=== PATIENT | female | born 1970 | race Caucasian/White ===

== ENCOUNTER → 2017-03-24 | Outpatient (REF) | payer OTHER ==
[~2017-03-24] MED LIST: /FENT25PA TD; ALIEVE; BENADRYL PO; CLARITAN PO; MULTCAP PO; PRIL20CA OR; TYLENOL PO; aleve; percocet
[2017-03-24 22:47] LABS: MICROSCOPIC INDICATED? MAN YES (NO)
[2017-03-24 22:53] LABS: SQUAMOUS EPITHELIAL CELL URINE MOD AMOUNT /hpf (SMALL AMT); TRANSITIONAL EPI CELLS, URINE SMALL AMOUNT /hpf; WBC, URINE TNTC /hpf (0-3)
[2017-03-24 22:54] LABS: BACTERIA, URINE SMALL AMOUNT
[2017-03-24 22:55] LABS: HYALINE CAST, URINE NONE SEEN /lpf (0-1)
[2017-03-24 22:56] LABS: MICROSCOPIC EXAM PERFORMED
== END ==
LOC: M LAB REF 10:29
PROVIDERS: ATTEND Physician Assistant Medical
DX: R30.0 Dysuria (principal)

== ENCOUNTER → 2017-08-25 | Outpatient (REF) | payer OTHER ==
[2017-08-25 21:40] LABS: LUTEINIZING HORMONE 28.7 mIU/mL
[2017-08-25 21:41] LABS: FOLLICLE STIMULATING HORMONE 81.2 mIU/mL
== END ==
LOC: M LAB REF 17:48
DX: N91.2 Amenorrhea, unspecified (principal)

== ENCOUNTER 2018-01-28 10:39 | Emergency (ER) | payer OTHER ==
[2018-01-28] MEDS: ONDANSETRON 4 MG ORAL DISINTEGRATING TAB (Q0162 PER 1MG) PO (12:49)
[2018-01-28] MEDS: ACETAMINOPHEN 325 MG TAB PO (12:49)
== END 2018-01-28 13:40 | disposition home or self-care (01) ==
LOC: M ED 10:39
DX: S09.90XA Unspecified injury of head, initial encounter (principal); S06.0X0A Concussion without loss of consciousness, initial encounter; W22.8XXA Striking against or struck by other objects, initial encounter; Y92.9 Unspecified place or not applicable; Y93.01 Activity, walking, marching and hiking; Y99.0 Civilian activity done for income or pay; G43.909 Migraine, unspecified, not intractable, without status migrainosus; J30.2 Other seasonal allergic rhinitis; Z79.899 Other long term (current) drug therapy
CPT/HCPCS: Q0162

== ENCOUNTER 2018-03-30 06:34 | Day surgery (SDC) | payer OTHER ==
[~2018-03-30 06:34] MED LIST changes: -/FENT25PA TD; -ALIEVE; -BENADRYL PO; -CLARITAN PO; +KETOROLAC 60 MG/2 ML VIAL (J1885) As Ordered; +LIDOCAINE 2% INJ 100 MG/5 ML SDV (FOR ANES.) As Ordered; +MIDAZOLAM INJ 2 MG/2 ML VIAL (J2250) As Ordered; -MULTCAP PO; +ONDANSETRON 4MG/2ML VIAL (J2405) As Ordered; -PRIL20CA OR; +PROPOFOL 200 MG/20 ML VIAL As Ordered; -TYLENOL PO; -aleve; +dexameTHASONE 4 MG/ML 1ML VIAL (J1100) As Ordered; +fentaNYL 100 MCG/2 ML INJECTION (J3010) As Ordered; -percocet
[2018-03-30] MEDS: LR 1,000 ML IV (07:19)
[2018-03-30] MEDS ORDERED: CHLOROPROCAINE 2 % INJ PRES.FREE 20 ML VIAL (J2400) As Ordered (08:09)
[2018-03-30] MEDS ORDERED: MIDAZOLAM INJ 2 MG/2 ML VIAL (J2250) As Ordered (08:42)
[2018-03-30] MEDS ORDERED: ONDANSETRON 4MG/2ML VIAL (J2405) IV (09:30)
[2018-03-30] MEDS ORDERED: fentaNYL 100 MCG/2 ML INJECTION (J3010) IV (09:30)
[2018-03-30] MEDS ORDERED: LR 1,000 ML IV ×2 (09:30)
[2018-03-30] MEDS ORDERED: ACETAMINOPHEN 500 MG TAB As Ordered (10:21)
[2018-03-30] MEDS: ACETAMINOPHEN 500 MG TAB PO (10:24)
[2018-03-30] MEDS ORDERED: IBUPROFEN 600 MG TAB PO (12:00)
== END 2018-03-30 11:04 | disposition home or self-care (01) ==
LOC: M SDC 06:34
DX: N95.0 Postmenopausal bleeding (principal); N85.00 Endometrial hyperplasia, unspecified; Z98.84 Bariatric surgery status
CPT/HCPCS: 58558

== ENCOUNTER → 2021-01-23 | Outpatient (REF) | payer OTHER ==
[~2021-01-23] MED LIST changes: +ALIEVE; +ALLE60TA69 PO; +BENADRYL PO; +CLARITAN PO; +FENT1DIS14 TD; +IBUP1TAB7 PO; -KETOROLAC 60 MG/2 ML VIAL (J1885) As Ordered; -LIDOCAINE 2% INJ 100 MG/5 ML SDV (FOR ANES.) As Ordered; +MAGN1TAB26 PO; +MAXA10TA14 PO; -MIDAZOLAM INJ 2 MG/2 ML VIAL (J2250) As Ordered; +MULTCAP PO; -ONDANSETRON 4MG/2ML VIAL (J2405) As Ordered; +PRIL20CA OR; -PROPOFOL 200 MG/20 ML VIAL As Ordered; +ROPI2TAB3 PO; +TOPA100T12 PO; +TRAZ-257 PO; +TYLENOL PO; +ZOFR4TAB14 PO; +aleve; -dexameTHASONE 4 MG/ML 1ML VIAL (J1100) As Ordered; -fentaNYL 100 MCG/2 ML INJECTION (J3010) As Ordered; +percocet
[2021-01-23 21:05] LABS: APPEARANCE, URINE CLOUDY (CLEAR); BACTERIA, URINE AUTO NEGATIVE (NEGATIVE); BILIRUBIN, URINE AUTO NEGATIVE (NEGATIVE); BLOOD, URINE BLOOD 1+ (NEGATIVE); CALCIUM OXALATE CRYSTALS SMALL; COLOR, URINE YELLOW (YELLOW); GLUCOSE, URINE (UA) AUTO NEGATIVE (NEGATIVE); KETONE, URINE AUTO TRACE mg/dL (NEGATIVE); LEUKOCYTE ESTERASE, URINE AUTO 3+ (NEGATIVE); MUCUS, URINE MODERATE (NEGATIVE); NITRITE, URINE AUTO NEGATIVE (NEGATIVE); PROTEIN, URINE AUTO 1+ mg/dL (NEGATIVE); RBC, URINE AUTO 6 /HPF (0-3); SPECIFIC GRAVITY URINE AUTO 1.027 (1.002-1.035); SQUAMOUS EPITHELIAL CELL UR AU 2 /HPF (0-6); WBC, URINE AUTO 51 /HPF (0-3)
== END ==
LOC: M LAB REF 19:55
PROVIDERS: ATTEND Physician Assistant
DX: R30.0 Dysuria (principal)

== ENCOUNTER 2021-02-03 23:19 | Emergency (ER) | payer OTHER ==
[~2021-02-03] VITALS: Ht 170.2 cm; Wt 97.7 kg
[2021-02-04] MEDS ORDERED: NS 1,000 ML IV ONE (00:05)
[2021-02-04] MEDS ORDERED: LORazepam 2 MG/ML VIAL IV STA (00:08)
[2021-02-04] MEDS ORDERED: LORazepam 2 MG/ML VIAL As Ordered ONE (00:10)
[2021-02-04 00:17] LABS: BASO # 0.1 10^3/uL (0.0-0.2); BASO % 0.5 % (0.0-1.0); EOS # 0.1 10^3/uL (0.0-0.5); EOS % 1.2 % (0.0-3.0); HEMATOCRIT 41.5 % (36.0-47.0); HEMOGLOBIN 13.9 g/dl (12.0-15.5); LYMPH # 1.4 10^3/uL (1.5-5.0); LYMPH % 12.7 % (24.0-44.0); MEAN CORPUSCULAR HEMOGLOBIN 31.4 pg (27.0-33.0); MEAN CORPUSCULAR HGB CONC 33.5 g/dl (32.0-36.5); MEAN CORPUSCULAR VOLUME 93.9 fl (80.0-96.0); MONO # 0.6 10^3/uL (0.0-0.8); MONO % 5.3 % (2.0-8.0); NEUTROPHILS # 8.7 10^3/uL (1.5-8.5); NEUTROPHILS % 79.5 % (36.0-66.0); PLATELET COUNT, AUTOMATED 303 10^3/uL (150-450); RED BLOOD COUNT 4.42 10^6/uL (4.00-5.40); WHITE BLOOD COUNT 10.9 10^3/uL (4.0-10.0)
[2021-02-04 00:36] LABS: BLOOD UREA NITROGEN 27 MG/DL (7-18); CALCIUM LEVEL 9.1 MG/DL (8.5-10.1); CARBON DIOXIDE LEVEL 22 MEQ/L (21-32); CHLORIDE LEVEL 110 MEQ/L (98-107); CREATININE FOR GFR 1.01 MG/DL (0.55-1.30); GLOMERULAR FILTRATION RATE > 60.0 (>51); GLUCOSE, FASTING 157 MG/DL (70-100); POTASSIUM SERUM 3.4 MEQ/L (3.5-5.1); SODIUM LEVEL 141 MEQ/L (136-145)
[2021-02-04 02:00] VITALS: BP 150/92
[2021-02-04 02:09] LABS: AMPHETAMINES LEVEL URINE NEGATIVE (NEGATIVE); BARBITURATES URINE NEGATIVE (NEGATIVE); BENZODIAZEPINES URINE NEGATIVE (NEGATIVE); CANNABINOIDS URINE POSITIVE (NEGATIVE); COCAINE METABOLITE URINE NEGATIVE (NEGATIVE); METHADONE URINE NEGATIVE (NEGATIVE); OPIATES URINE NEGATIVE (NEGATIVE); PHENCYCLIDINE URINE NEGATIVE (NEGATIVE)
[2021-02-04] MEDS ORDERED: ROPI1TAB3 PO (23:16)
[2021-02-04] MEDS ORDERED: ROPI1TAB86 PO (23:16)
[2021-02-04] MEDS ORDERED: MULT-90 PO (23:17)
== END 2021-02-04 02:45 | disposition home or self-care (01) ==
LOC: M ED 23:19
DX: F12.229 Cannabis dependence with intoxication, unspecified (principal); G43.909 Migraine, unspecified, not intractable, without status migrainosus; Z79.899 Other long term (current) drug therapy
CPT/HCPCS: 80048; 80307; 85025; 96374; 99284; J2060

== ENCOUNTER 2021-02-04 20:01 | Inpatient (IN) | payer OTHER ==
[~2021-02-04] VITALS: Ht 170.2 cm; Wt 102.2 kg
[2021-02-04 21:37] LABS: BASO % 0.7 % (0.0-1.0); EOS # 0.2 10^3/uL (0.0-0.5); EOS % 3.3 % (0.0-3.0); HEMATOCRIT 40.8 % (36.0-47.0); HEMOGLOBIN 13.3 g/dl (12.0-15.5); LYMPH # 1.6 10^3/uL (1.5-5.0); LYMPH % 28.6 % (24.0-44.0); MEAN CORPUSCULAR HEMOGLOBIN 30.9 pg (27.0-33.0); MEAN CORPUSCULAR HGB CONC 32.6 g/dl (32.0-36.5); MEAN CORPUSCULAR VOLUME 94.9 fl (80.0-96.0); MONO # 0.3 10^3/uL (0.0-0.8); MONO % 5.7 % (2.0-8.0); NEUTROPHILS # 3.4 10^3/uL (1.5-8.5); NEUTROPHILS % 61.3 % (36.0-66.0); PLATELET COUNT, AUTOMATED 267 10^3/uL (150-450); WHITE BLOOD COUNT 5.5 10^3/uL (4.0-10.0)
[2021-02-04 21:59] LABS: AMPHETAMINES LEVEL URINE NEGATIVE (NEGATIVE); BARBITURATES URINE NEGATIVE (NEGATIVE); BENZODIAZEPINES URINE NEGATIVE (NEGATIVE); CANNABINOIDS URINE POSITIVE (NEGATIVE); COCAINE METABOLITE URINE NEGATIVE (NEGATIVE); METHADONE URINE NEGATIVE (NEGATIVE); OPIATES URINE NEGATIVE (NEGATIVE); PHENCYCLIDINE URINE NEGATIVE (NEGATIVE)
[2021-02-04 22:10] LABS: ACETAMINOPHEN LEVEL < 2.0 UG/ML (10.0-30.0); ALBUMIN 3.7 GM/DL (3.2-5.2); ALT/SGPT 20 U/L (12-78); BILIRUBIN,DIRECT < 0.1 MG/DL (0.0-0.2); BILIRUBIN,TOTAL 0.3 MG/DL (0.2-1.0); BLOOD UREA NITROGEN 14 MG/DL (7-18); CALCIUM LEVEL 8.4 MG/DL (8.5-10.1); CARBON DIOXIDE LEVEL 21 MEQ/L (21-32); CHLORIDE LEVEL 117 MEQ/L (98-107); CK-MB VALUE MASS 1.2 NG/ML (<3.6); CPK CREATINE PHOSPHOKINASE 110 U/L (26-192); CREATININE FOR GFR 0.72 MG/DL (0.55-1.30); ETHYL ALCOHOL (ETHANOL) < 0.003 % (0.000-0.010); GLOMERULAR FILTRATION RATE > 60.0 (>51); GLUCOSE, FASTING 109 MG/DL (70-100); MB/CK RELATIVE INDEX 1.09 (< OR =4); POTASSIUM SERUM 3.6 MEQ/L (3.5-5.1); SALICYLATE LEVEL < 1.7 MG/DL (5.0-30.0); SODIUM LEVEL 144 MEQ/L (136-145); TOTAL PROTEIN 6.5 GM/DL (6.4-8.2); TROPONIN I < 0.02 NG/ML (< 0.10)
--- NOTE | 2021-02-04 22:19 | REPVR ---
PROCEDURE INFORMATION: Exam: CT Head Without Contrast Exam date and time: 02/04/2021 8:57 PM Age: 50 years old Clinical indication: Altered mental status/memory loss TECHNIQUE: Imaging protocol: Computed tomography of the head without contrast. Axial and coronal reformatted images were created and reviewed. Radiation optimization: All CT scans at this facility use at least one of these dose optimization techniques: automated exposure control; mA and/or kV adjustment per patient size (includes targeted exams where dose is matched to clinical indication); or iterative reconstruction. COMPARISON: CT Head without contrast 01/28/2018 12:36 PM FINDINGS: Brain: No CT evidence of acute intracranial hemorrhage or acute territorial infarction. No significant mass effect or midline shift. Basal cisterns patent. Cerebral ventricles: Normal in size and configuration. Paranasal sinuses: Mild right greater than left sphenoid sinus mucosal thickening. Small left maxillary sinus polyp versus mucous retention cyst. Mastoid air cells: Grossly unremarkable. Bones/joints: No acute osseous abnormality. Soft tissues: Grossly unremarkable. IMPRESSION: 1. No CT evidence of acute intracranial pathology. 2. Additional findings, as above. Electronically signed by: Manuel Chen On 02/04/2021 22:18:58 PM
--- NOTE | 2021-02-04 22:24 | REPVR ---
PROCEDURE INFORMATION: Exam: XR Chest Exam date and time: 02/04/2021 8:56 PM Age: 50 years old Clinical indication: Other: AMS; Additional info: Altered mental status TECHNIQUE: Imaging protocol: XR of the chest. Views: 2 views. COMPARISON: No relevant prior studies available. FINDINGS: Lungs: Unremarkable. No consolidation. Pleural spaces: Unremarkable. No pleural effusion. No pneumothorax. Heart/Mediastinum: Rounded right paratracheal opacity on the AP image, of uncertain clinical significance. Bones/joints: No acute osseous abnormality. Mild degenerative changes of the spine. IMPRESSION: 1. Rounded right paratracheal opacity on the AP image, of uncertain clinical significance. If clinically indicated CT scan may be obtained. 2. Additional findings, as above. Electronically signed by: Manuel Chen On 02/04/2021 22:23:53 PM
[2021-02-04] MEDS ORDERED: LABETALOL 100MG TAB PO ONE (23:10)
[2021-02-04] MEDS ORDERED: ATORVASTATIN 20 MG TAB PO ONE (23:10)
[2021-02-04] MEDS ORDERED: ASPIRIN 81 MG CHEW TABLET PO ONE (23:10)
[2021-02-04] MEDS ORDERED: ROPI1TAB86 PO (23:16)
[2021-02-04] MEDS ORDERED: ROPI1TAB3 PO (23:16)
[2021-02-04] MEDS ORDERED: MULT-90 PO (23:17)
[2021-02-04] MEDS ORDERED: MAALOX 30 ML SUSP *UDC PO PRN (23:20)
[2021-02-04] MEDS ORDERED: ACETAMINOPHEN TAB 650MG DOSE (2X325MG) PO PRN (23:20)
[2021-02-04] MEDS ORDERED: MOM 30ML SUSPENSION UDC PO PRN (23:20)
--- NOTE | 2021-02-04 23:27 | HPEPDOC ---
[facility] Medical History & Physical Date of Admission Feb 04, 2021 Date of Service: Feb 04, 2021 Primary Care Physician: Sabine Copeland Attending Physician: MAYRA KAT MD History and Physical TIME OF SERVICE: 11:45pm CHIEF COMPLAINT: paresthesia HISTORY OF PRESENT ILLNESS: was in the ER yesterday w/o anxiety, paranoia and left sided paresthesia after inhaling and orally ingested various THC products; she was diagnosed with a THC overdose and sent home. Her symptoms improved but today she returned because she has been having left facial, left perioral, LUE and LLE paresthesia. The left sided paresthesia begun at about 5PM, is relapsing and remitting in nature & lasts for 30min. Her NIH stroke score was 0; discussed the case with and the consensus was that the pt might have HTN emergency. recommended completing the stroke workup; the patient has received ASA, labetalol and a statin. 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 FAMILY HISTORY: ALLERGIES: Please see below. HOME MEDICATIONS: Please see below. PHYSICAL EXAMINATION: Vital Signs Date Time Temp Pulse Resp B/P (MAP) Pulse Ox O2 Delivery O2 Flow Rate FiO2 02/04/21 20:01 98.7 97 20 169/80 (109) 96 Room Air GENERAL APPEARANCE: well-nourished and developed / NAD HEENT: EOMI / MMM&P / no scleral icterus CARDIOVASCULAR: RRR/NMRG / no LE edema LUNGS: CTAB on RA ABDOMEN: contour flat MUSCULOSKELETAL: NCAT / AZEEM x 4 INTEGUMENT: not flushed or diaphoretic NEUROLOGICAL: CN 2-12 intact / speech not dysarthric / strength 5/5 PSYCHIATRIC: A&O x3 /able to understand and follow all commands LABORATORY DATA: 02/04/21 21:08 Anion Gap 6L, Glomerular Filtration Rate > 60.0, Calcium Level 8.4L, Total Bilirubin 0.3, Direct Bilirubin < 0.1, Aspartate Amino Transf (AST/SGOT) 18, Alanine Aminotransferase (ALT/SGPT) 20, Alkaline Phosphatase 99, Total Creatine Kinase 110, Creatine Kinase MB 1.2, Creatine Kinase MB Relative Index 1.09, Troponin I < 0.02, Total Protein 6.5, Albumin 3.7, Albumin/Globulin Ratio 1.3, Thyroid Stimulating Hormone (TSH) 2.660, Salicylates Level < 1.7L, Acetaminophen Level < 2.0L, Ethyl Alcohol Level < 0.003 Ammonia 29, Urine Opiates Screen NEGATIVE, Urine Methadone Screen NEGATIVE, Urine Barbiturates Screen NEGATIVE, Urine Phencyclidine Screen NEGATIVE, Urine Amphetamines Screen NEGATIVE, Urine Benzodiazepines Screen NEGATIVE, Urine Cocaine Metabolite Screen NEGATIVE, Urine Cannabinoids Screen POSITIVEH IMAGING: Chest xray IMPRESSION: 1. Rounded right paratracheal opacity on the AP image, of uncertain clinical significance. If clinically indicated CT scan may be obtained. 2. Additional findings, as above. MICROBIOLOGY: respiratory panel neg ASSESSMENT: is a 50 yr old w Migraines, remote hx of HTN resolved after her gastric bypass & benign pericardial cyst who is admitted for HTN Urgency vs adverse reaction to THC. PLAN: 1 Hypertensive Crisis Likely HTN Urgency She had an SBP >180 with symptoms (paresthesias) but we dont have definitive evidence of end-organ damage This was likely triggered by use of multiple THC products which she reports that she plans to abstain from in the future. Plan: admit to PCU / will aim to lower BP by 25% w/in the first 2-4 hours with target BP of <160/100 tonight / if her BP doesnt return to her baseline the day time team may consider starting her on an anti-hypertensive / she can f/u with her PCP to discuss the role of lifestyle modifications in controlling her BP (low salt diet, exercise and weight loss) 2 Paresthesia Possibly due to adverse reaction to THC products, accelerated HTN +/- TIA Plan telemetry /fall precautions / c/w ASA & statin pending lipid panel, A1C, CTA head/neck, MRI brain, Echo and hypercoag work-up 3 Migraines Plan: rizatriptan & topiramate 4 RLS Plan: ropinorole 5 Benign pericardial cyst -majority of tissue was resected by several years ago 6 Obesity Complicates care DVT px w (Raymundo Score 1 or 2 points = pharmacological px not indicated) Dispo: home after at least 2 midnights stay Home Medications Scheduled Fexofenadine HCl (Kya Allergy) 60 Mg Tab, 160 PO DAILY Multivitamin (Multivitamin) 1 Each Tablet, 1 EACH PO DAILY Ropinirole HCl (Ropinirole HCl) 1 Mg Tablet, 1 MG PO QPM Ropinirole HCl (Ropinirole HCl) 1 Mg Tablet, 2 MG PO QHS Topiramate (Topamax) 100 Mg Tab, 100 MG PO BID Scheduled PRN Rizatriptan Benzoate (Maxalt) 10 Mg Tab, 10 MG PO for MIGRAINE Allergies Coded Allergies: SEASONAL ALLERGIES (Verified Allergy, Unknown, 03/30/18) A-FIB/CHADSVASC A-FIB History Current/History of A-Fib/PAF?: No Current PO Anticoag Therapy: No MAYRA KAT MD Feb 04, 2021 23:27
[2021-02-04] MEDS ORDERED: ISOVUE-370 76% 100ML VIAL As Ordered ONE (23:32)
[2021-02-04] MEDS ORDERED: RIZATRIPTAN BENZOATE 10 MG TAB PO PRN (23:35)
[2021-02-05] VITALS (7 sets, daily range): BP systolic 110–160; BP diastolic 56–92
[2021-02-05] LABS: C REACTIVE PROTEIN QUANTITATIV < 0.30 MG/DL (0.00-0.30); CHOLESTEROL LEVEL 183 MG/DL (<200); CHOLESTEROL RISK RATIO 3.327 (<5); HDL CHOLESTEROL 55 MG/DL (>40); LDL CHOLESTEROL 99 MG/DL (<100); NON-HDL-C 128 MG/DL; RHEUMATOID FACTOR QUANT < 10.0 IU/ML (<15.0); TRIGLYCERIDES LEVEL 147 MG/DL (<150)
--- NOTE | 2021-02-05 00:14 | REPVR ---
PROCEDURE INFORMATION: Exam: CT Angiography Head With Contrast, Arteriography Exam date and time: 02/04/2021 11:40 PM Age: 50 years old Clinical indication: Other: Relapsing and remitting hand paresthesias / accelerated HTN TECHNIQUE: Imaging protocol: Computed tomography angiography of the head with contrast. Exam focused on the arteries. Axial, coronal and sagittal reformatted images were created and reviewed. 3D rendering (Not supervised by radiologist): MIP and/or 3D reconstructed images were created by the technologist. Radiation optimization: All CT scans at this facility use at least one of these dose optimization techniques: automated exposure control; mA and/or kV adjustment per patient size (includes targeted exams where dose is matched to clinical indication); or iterative reconstruction. Contrast material: ISOVUE 370; Contrast volume: 75 ml; Contrast route: INTRAVENOUS (IV); COMPARISON: CT Head without contrast 02/04/2021 8:48 PM FINDINGS: ANTERIOR CIRCULATION: Right internal carotid artery: Unremarkable. Intracranial segment is patent with no significant stenosis. No aneurysm. Right middle cerebral artery: Unremarkable. No occlusion or significant stenosis. No aneurysm. Right anterior cerebral artery: Unremarkable. No occlusion or significant stenosis. No aneurysm. Left internal carotid artery: Unremarkable. Intracranial segment is patent with no significant stenosis. No aneurysm. Left middle cerebral artery: Unremarkable. No occlusion or significant stenosis. No aneurysm. Left anterior cerebral artery: Unremarkable. No occlusion or significant stenosis. No aneurysm. POSTERIOR CIRCULATION: Right vertebral artery: Unremarkable. No occlusion or significant stenosis. No aneurysm. Left vertebral artery: Unremarkable. No occlusion or significant stenosis. No aneurysm. Basilar artery: Unremarkable. No occlusion or significant stenosis. No aneurysm. Right posterior cerebral artery: Unremarkable. No occlusion or significant stenosis. No aneurysm. Left posterior cerebral artery: Unremarkable. No occlusion or significant stenosis. No aneurysm. Brain: No definite mass, mass effect, or midline shift. Cerebral ventricles: No ventriculomegaly. Bones/joints: Unremarkable. No acute fracture. Soft tissues: Unremarkable. IMPRESSION: No large vessel stenosis or occlusion. Electronically signed by: Manuel Chen On 02/05/2021 00:14:49 AM
[2021-02-05] MEDS ORDERED: RAMELTEON 8 MG TAB (ROZEREM) PO PRN (00:15)
--- NOTE | 2021-02-05 00:19 | REPVR ---
PROCEDURE INFORMATION: Exam: CT Angiography Neck With Contrast Exam date and time: 02/04/2021 11:40 PM Age: 50 years old Clinical indication: Other: Relapsing and remitting hand paresthesias / accelerated HTN TECHNIQUE: Imaging protocol: Computed tomography angiography of the neck with contrast. Axial, coronal and sagittal reformatted images were created and reviewed. 3D rendering (Not supervised by radiologist): MIP and/or 3D reconstructed images were created by the technologist. Radiation optimization: All CT scans at this facility use at least one of these dose optimization techniques: automated exposure control; mA and/or kV adjustment per patient size (includes targeted exams where dose is matched to clinical indication); or iterative reconstruction. Contrast material: ISOVUE 370; Contrast volume: 75 ml; Contrast route: INTRAVENOUS (IV); COMPARISON: CT Head without contrast 02/04/2021 8:48 PM FINDINGS: Right common carotid artery: No stenosis. No dissection or occlusion. Right internal carotid artery: Normal. Extracranial segment patent with no significant stenosis. No dissection or occlusion. Right external carotid artery: No occlusion or stenosis of the origin. Left common carotid artery: No stenosis. No dissection or occlusion. Left internal carotid artery: Normal. Extracranial segment patent with no significant stenosis. No dissection or occlusion. Left external carotid artery: No occlusion or stenosis of the origin. Right vertebral artery: No stenosis. No dissection or occlusion. Left vertebral artery: No stenosis. No dissection or occlusion. Soft tissues: Unremarkable. Bones/joints: No acute osseous abnormality. Osteopenia. Straightening of the normal cervical lordosis. Mild multilevel degenerative changes, characterized by disc space narrowing, osteophytosis and uncovertebral and facet joint hypertrophy. Mild multilevel spinal canal and neural foraminal narrowing. Mediastinum: 5.1 x 4.3 cm lobular right paratracheal mass. IMPRESSION: 1. No acute vascular abnormality. 2. 5.1 x 4.3 cm lobular right paratracheal mass. CT scan of the chest is recommended for further evaluation. REFERENCES: NASCET CRITERIA. The degree of internal carotid artery stenosis is based on NASCET criteria. Normal is no stenosis. Mild is less than 50% stenosis. Moderate is 50-69% stenosis. Severe is 70% to 99% stenosis. Total occlusion is no detectable patent lumen. Electronically signed by: Manuel Chen On 02/05/2021 00:18:30 AM
[2021-02-05 00:23] LABS: ERYTHROCYTE SEDIMENTATION RATE 5 mm/hr (0-30)
[2021-02-05 01:16] LABS: HEMOGLOBIN A1c 4.8 %
[2021-02-05] MEDS: rOPINIRole 1MG TAB PO SCH ×2 (01:41→21:40)
--- NOTE | 2021-02-05 04:12 | REPVR ---
PROCEDURE INFORMATION: Exam: MR Head Without Contrast Exam date and time: 02/05/2021 3:21 AM Age: 50 years old Clinical indication: Other: Relapsing and remitting paresthesias / accelerated HTN TECHNIQUE: Imaging protocol: MR of the head without contrast. COMPARISON: CT Head without contrast 02/04/2021 8:48 PM FINDINGS: Brain: Unremarkable. No acute infarct. No hemorrhage. No significant white matter disease. No edema. No midline shift or mass effect. Cerebral ventricles: Normal. No ventriculomegaly. Bones/joints: Unremarkable. Paranasal sinuses: Normal as visualized. No acute sinusitis. Mastoid air cells: Normal as visualized. No mastoid effusion. Soft tissues: Unremarkable. IMPRESSION: No acute intracranial abnormality. Electronically signed by: Nicola Martinez On 02/05/2021 04:12:17 AM
[2021-02-05 05:53] LABS: HEMATOCRIT 38.1 % (36.0-47.0); HEMOGLOBIN 12.6 g/dl (12.0-15.5); MEAN CORPUSCULAR HEMOGLOBIN 31.3 pg (27.0-33.0); MEAN CORPUSCULAR HGB CONC 33.1 g/dl (32.0-36.5); MEAN CORPUSCULAR VOLUME 94.8 fl (80.0-96.0); PLATELET COUNT, AUTOMATED 234 10^3/uL (150-450); RED BLOOD COUNT 4.02 10^6/uL (4.00-5.40); WHITE BLOOD COUNT 5.1 10^3/uL (4.0-10.0)
[2021-02-05 06:21] LABS: BLOOD UREA NITROGEN 11 MG/DL (7-18); CALCIUM LEVEL 8.6 MG/DL (8.5-10.1); CARBON DIOXIDE LEVEL 23 MEQ/L (21-32); CHLORIDE LEVEL 116 MEQ/L (98-107); CREATININE FOR GFR 0.63 MG/DL (0.55-1.30); GLOMERULAR FILTRATION RATE > 60.0 (>51); GLUCOSE, FASTING 98 MG/DL (70-100); POTASSIUM SERUM 3.5 MEQ/L (3.5-5.1); SODIUM LEVEL 144 MEQ/L (136-145)
--- NOTE | 2021-02-05 07:51 | IPNPDOC ---
Text Note Date of Service The patient was seen on 02/05/21. NOTE Subjective: Patient seen and examined this morning at bedside. Continues to endorse intermittent left facial left upper extremity and left lower extremity paresthesia although better than yesterday. Otherwise feeling well denies any chest pain or shortness of breath. Denies any speech changes. Denies any weakness in upper or lower extremities. No acute overnight events reported to me. Objective: Constitutional: Awake and alert, in no apparent distress ENT: Sclera are clear. Mucosa is moist. Respiratory: Lungs CTA bilaterally. No respiratory distress. Cardiovascular: RRR S1 and S2 are normal, no murmur Gastrointestinal: Abdomen is soft, non distended, non tender, BS present. Musculoskeletal: No edema. RUE 5/5, LUE 5/5, BLE 5/5 Neurologic: No focal neurological deficit. Mental Status: A&O x3, normal affect Skin: No visible rashes Assessment/plan: is a 50 yr old w Migraines, remote hx of HTN resolved after her gastric bypass & benign pericardial cyst who is admitted for HTN Urgency vs adverse reaction to THC. # Hypertensive urgency: Blood pressure better controlled now. Continue home medications. Monitor titrate. Hydralazine IV as needed. # Paresthesia: Dr Kong neurologist thinks could be related to THC products vs in combination with the HTN urgency above. Continue to observe. ASA, statin. Nuro checks. Tele. echo, hypercoag workup started by admitting provider. Imaging reviewed. Continue to monitor paresthesias for now, anticipate them to resolve as THC products are metabolized and BP is better controlled. # R paratrachal mass: Seen on CT neck angio. Ordered CT chest to further evaluate per radiologist recommendations. # Migraine headaches: Continue home medications # RLS: ropinorole # Obesity Complicates care A Yousef Hospitalist VS,Fishbone, I+O VS, Fishbone, I+O Laboratory Tests 02/04/21 21:07 02/04/21 21:08 02/05/21 05:35 Vital Signs Date Time Temp Pulse Resp B/P (MAP) Pulse Ox O2 Delivery O2 Flow Rate FiO2 02/05/21 04:10 97.1 68 16 110/56 (74) 100 Room Air PRESTON RINCON MD Feb 05, 2021 07:51
[2021-02-05] MEDS ORDERED: ENOXAPARIN 40MG/0.4ML SYRINGE (J1650 PER 10MG) SC SCH (09:00)
[2021-02-05] MEDS: ASPIRIN 81MG ENTERIC TABLET PO SCH (09:25)
[2021-02-05] MEDS: TOPIRAMATE (TopAMAX) 100 MG TAB PO SCH ×2 (09:26→21:39)
[2021-02-05] MEDS: ATORVASTATIN 20 MG TAB PO SCH (09:26)
--- NOTE | 2021-02-05 15:19 | ECGEPIP ---
[facility] - ED Test Date: 2021-02-04 Pat Name: YI ESPINOZA Department: Room: [place] [address] Gender: Female Pivot Maker: Sheree MANE : 1970 Requested By: BATOOL Soto Order Number: [id number] Reading MD: Prince Cadena Measurements Intervals [place] Rate: 80 P: 37 WA: 140 QRS: -2 QRSD: 74 T: 32 QT: 380 QTc: 438 Interpretive Statements Normal sinus rhythm Minimal voltage criteria for LVH, may be normal variant Baseline artifact Comparison tracing not on file Nonspecific ST abnormality Electronically Signed on 02-05-2021 15:19:38 EDT by Prince Cadena
[2021-02-05] MEDS ORDERED: rOPINIRole 1MG TAB PO SCH (18:00)
--- NOTE | 2021-02-05 18:14 | REP ---
INDICATION: Evaluate chest nodule seen on CTA. COMPARISON: Comparison CT of the chest is from April 11, 2016. Comparison is made with images from CT angiography of the neck dated February 04, 2021. Comparison is also made with chest CT images from April 02, 2011.. TECHNIQUE: Helical scanning is acquired. 3 mm axial images are generated. Coronal and sagittal MPR and coronal MIP images are generated. FINDINGS: There is a homogeneous low density mass in the right paratracheal and pretracheal mediastinum. There are 2 focal densities consistent with calcification or surgical clips. The appearance and size the lesion is unchanged from both prior studies 2015 and 2020. This is compatible with a mediastinal cyst. No hilar or other mediastinal mass is seen. No pleural or pericardial effusion is noted. There is a right lower lobe pulmonary nodule visible on page 48 of 104 in series 201 of today's study which measures 7 mm in greatest diameter. This is visible on the prior CT study from 2010 and is felt to be unchanged. Is unchanged from 2016 study as well. There is a calcified granuloma adjacent to the pleura in the superior tip of the left lower lobe. No other pulmonary nodule is seen. No mass lesion is observed. No pleural effusion or infiltrate is appreciated. No axillary or other extra thoracic mass or adenopathy is seen. Patient is status post gastric bypass. There is a small low-density left adrenal adenoma which is unchanged from the 2016 study. The visualized upper abdominal structures are otherwise unremarkable. 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 Stable right lower lobe 7 mm pulmonary nodule. Stable left adrenal adenoma. No acute abnormality. <Electronically signed by Bhanu Hernandez > 02/05/21 1005
[2021-02-06 00:05] VITALS: BP 130/78
[2021-02-06 04:00] VITALS: BP 120/67
[2021-02-06 08:00] VITALS: BP 135/81
--- NOTE | 2021-02-06 08:10 | ECHO ---
ECHOCARDIOGRAM DATE OF PROCEDURE: 02/05/2021 Age: 68 Gender: F Height: 177 cm Weight: 103 kg REFERRING PHYSICIAN: Dr. Merline Ramirez INDICATION: Transient cerebral ischemia, unspecified 2D Measurements: Aortic annulus: 1.9 cm Interventricular septum: 0.96 cm Posterior wall: 0.91 cm Left ventricle diastole: 3.6 cm Aortic root: 2.9 cm Left atrium: 2.7 cm Left atrial volume index: 19 Proximal ascending aorta: 2.7 cm Doppler Measurements: No aortic stenosis No aortic regurgitation LVOT velocity: 86.7 cm/s No mitral regurgitation No mitral stenosis Mitral E velocity: 63.8 cm/s Mitral A velocity: 76.7 cm/s Mitral deceleration time: 256 ms No tricuspid regurgitation No pulmonic regurgitation MITRAL ANNULAR TISSUE DOPPLER E prime septal: 8.7 cm/s E prime lateral: 11.6 cm/s DESCRIPTION: Rhythm was sinus. This was a moderately technically difficult echocardiogram. No pericardial effusion. This was a 2D, M-mode, color flow Doppler, and pulsed-wave Doppler examination including mitral annular tissue Doppler. CONCLUSIONS: 1. Normal left ventricle internal dimensions and wall thickness. Normal regional left ventricular (LV) wall motion and wall thickening. Normal left ventricular (LV) systolic function. Left ventricular ejection fraction (LVEF) 70% by visual estimate. Normal left ventricular (LV) diastolic function for age. 2. Moderately technically difficult echocardiogram. 3. Bubble study was same. Bubble was negative for right [id number] heart intracardiac shunting or intrapulmonary shunting. 4. Otherwise, normal-appearing echocardiogram Doppler findings.
[2021-02-06] MEDS: ATORVASTATIN 20 MG TAB PO SCH (08:27)
[2021-02-06] MEDS: TOPIRAMATE (TopAMAX) 100 MG TAB PO SCH (08:27)
[2021-02-06] MEDS: ASPIRIN 81MG ENTERIC TABLET PO SCH (08:27)
[2021-02-06] MEDS ORDERED: ALPRAZolam 0.5 MG TAB PO PRN (08:35)
[2021-02-06] MEDS ORDERED: ALPRAZolam 0.5 MG TAB PO ONE (08:35)
[2021-02-06] MEDS ORDERED: XANA0.5T PO (08:37)
[2021-02-06 12:00] VITALS: BP 126/81
--- NOTE | 2021-02-06 12:22 | DSES ---
DISCHARGE SUMMARY DATE OF ADMISSION: 02/04/2021 DATE OF DISCHARGE: 02/06/2021 DISCHARGE DIAGNOSIS: 1. Hypertensive urgency. 2. Paresthesia related to THC product. 3. Pretracheal and right paratracheal mediastinal cyst. 4. Right lower lobe 7 mm pulmonary nodule. 5. Left adrenal adenoma. 6. History of migraine headaches. 7. Anxiety. 8. Restless leg syndrome. 9. Obesity, BMI of 35.3. DISCHARGE MEDICATIONS: 1. Xanax 0.5 b.i.d. as needed. 2. Kya 160 daily. 3. Multivitamin one tablet daily. 4. Maxalt 10 mg as needed. 5. Ropinirole 1 mg q. p.m., 2 mg q.h.s. 6. Topamax 100 mg b.i.d. HOSPITAL COURSE: This is a 50-year-old female admitted on 02/04/2021 with complaints of paresthesias on the left side after inhaling and orally ingesting various THC products, diagnosed with THC overdose and sent home from the Emergency Room. Patient improved but returned later on due to left sided facial, perioral, left upper and lower extremity paresthesias that started at 5 p.m. remitting in nature and lasting for about 30 minutes. This case was discussed with Dr. Kong, she was found to have hypertensive urgency, was given Labetalol, statins and aspirin in the ER. Presenting blood pressure was 175/100, peaked to 183/104. CT of the head on 02/04/2021 showed no acute findings of acute intracranial pathology. MRI of the brain had no acute intracranial abnormality. Chest x-ray had no pulmonary edema or infiltrate. Neck CTA: No acute vascular abnormality. A 5.1 x 4.3 cm lobular right paratracheal mass was noted. CT of chest on 02/05/2021 showed stable pretracheal and right paratracheal mediastinal cyst, able right lower lobe 7 mm pulmonary nodule, stable left adrenal adenoma. Hypercoagulable workup was done. Patient was given aspirin, echo was normal. EF was 70% with negative bubble study and no communication between right and left atrium. Swallow evaluation showed patient had no signs of aspiration, safe for a regular diet. Patient was kept on a 2 gram sodium diet and was given Labetalol 100 mg x1 only in he Emergency Room. Since then, patient had complained of anxiety and was given Xanax as needed b.i.d. Her blood pressure was well-maintained at 110 systolic to 135 systolic without medications. Patient had no other complaints. She ambulated well and had no motor or function deficits. PHYSICAL EXAMINATION ON DISCHARGE: VITAL SIGNS: Temperature 97.6, pulse 65, sinus, respiratory rate 18, blood pressure 135/81, 98% on room air. GENERAL: Awake, alert and oriented x3. No facial asymmetry. Tongue is midline. LUNGS: Clear to auscultation. No wheezing, rales or rhonchi. HEART: S1 and S2, sinus rhythm. ABDOMEN: Soft, nontender and nondistended. Positive bowel sounds. EXTREMITIES: No cyanosis, clubbing or pitting edema. NEUROLOGIC: 5/5 motor function of bilateral upper and lower extremities. The patient has no pronator drift. Negative Babinski. She continues with no sensory deficits. LABORATORY DATA: White count 5.1, hemoglobin 12, hematocrit 38, platelets 234,000, sodium 144, potassium 3.5, chloride 116, bicarbonate 23, BUN 11, creatinine 0.6, glucose 98. TIME SPENT ON DISCHARGE: 30 minutes MTDD
[2021-02-07 11:39] LABS: DRVV SCREEN 38.9 SEC
[2021-02-08 17:08] LABS: ANCA-ATYPICAL <1:20 titer (Neg:<1:20); ANTI THROMBIN 3 ANTIGEN IMMUNO 107 % (72-124); ANTI THROMBIN 3 FUNCT ACTIVITY 112 % (75-135); ANTINUCLEAR ANTIBODIES DIRECT Negative (Negative); CARDIOLIPIN IGA ANTIBODY <9 APL U/mL (0-11); CARDIOLIPIN IGG ANTIBODY <9 GPL U/mL (0-14); CARDIOLIPIN IGM ANTIBODY <9 MPL U/mL (0-12); CYTOPLASMIC NEUTROP AB ANCA-C <1:20 titer (Neg:<1:20); F8 ACTIVITY FOR F8 PANEL 142 % (56-140); F8 ACTIVITY vWB FOR F8 PANEL 160 % (50-200); F8 ANTIGEN FOR F8 PANEL 189 % (50-200); PERINUCLEAR AB ANCA-P <1:20 titer (Neg:<1:20); PROTEIN C ANTIGEN 104 % (60-150); PROTEIN S ANTIGEN FREE 110 % (57-157); PROTEIN S ANTIGEN TOTAL 78 % (60-150); SJOGREN'S ANTI SS-A <0.2 AI (0.0-0.9); SJOGREN'S ANTI SS-B 0.4 AI (0.0-0.9)
== END 2021-02-06 12:53 | disposition home or self-care (01) | DRG 305 ==
LOC: M ED 20:01 → M ED INP 23:18 → ENRESERV 02-05 00:23 → M PCU 02-05 01:12
PROVIDERS: ADMIT Internal Medicine; ATTEND General Practice
DX: I16.0 Hypertensive urgency (principal); G43.909 Migraine, unspecified, not intractable, without status migrainosus; E66.9 Obesity, unspecified; R20.0 Anesthesia of skin; G25.81 Restless legs syndrome; J30.2 Other seasonal allergic rhinitis; R91.1 Solitary pulmonary nodule; F41.9 Anxiety disorder, unspecified; Z98.84 Bariatric surgery status; Z68.35 Body mass index [BMI] 35.0-35.9, adult; T40.7X Poisoning by, adverse effect of and underdosing of cannabis (derivatives); Z79.899 Other long term (current) drug therapy

== ENCOUNTER → 2021-03-26 | Outpatient (CLI) | payer OTHER ==
[~2021-03-26] MED LIST changes: +MULT-90 PO; +ROPI1TAB3 PO; +ROPI1TAB86 PO; +XANA0.5T PO
[2021-03-29 19:07] LABS: FREE CORTISOL 24HR URINE 17 ug/24 hr (6-42); FREE CORTISOL URINE 8 ug/L (Undefined)
== END ==
LOC: M LAB 07:35
PROVIDERS: ATTEND Nurse Practitioner Family
DX: D35.02 Benign neoplasm of left adrenal gland (principal)

== ENCOUNTER → 2021-04-12 | Outpatient (CLI) | payer OTHER ==
[~2021-04-12] MED LIST changes: +ISOVUE-370 76% 100ML VIAL As Ordered ONE
--- NOTE | 2021-04-13 08:49 | REP ---
INDICATION: BELINDA MICHELLE OF LT ADRENAL GLAND. COMPARISON: None TECHNIQUE: Axial precontrast, contrast-enhanced and 15 minute delayed images of the abdomen using oral and 100 cc Isovue 370 intravenous contrast material. Coronal and sagittal reformations obtained. This CT examination was performed using the following dose reduction techniques: Automated exposure control, adjustment of mA and/or kv according to the patient's size, and the use of iterative reconstruction technique. FINDINGS: The left adrenal gland demonstrates small benign adenoma measuring roughly 15 mm maximal diameter. The right adrenal gland is normal. Liver, spleen, gallbladder and pancreas are unremarkable. Right kidney is normal. Left kidney includes 2 mm nonobstructing calculus and suspected complex 1.2 cm cyst along the anterior midpole margin. Evidence for prior gastric bypass surgery without acute findings. Visualized portions of the small and large bowel are grossly unremarkable. Scattered colonic diverticula noted without acute diverticulitis.. No ascites. No free air. No intraperitoneal or retroperitoneal adenopathy. Abdominal aorta and vasculature appear normal. Musculoskeletal structures are intact and without acute osseous abnormality. IMPRESSION: 1. Benign left adrenal adenoma. 2. Left renal findings as described above. Consider follow-up ultrasound for confirmation of presumed complex left renal cyst. 3. Stable pulmonary nodule in the right lower lobe. <Electronically signed by Anthony Calixto > 04/13/21 0638
== END ==
LOC: M RAD 16:52
PROVIDERS: ATTEND Nurse Practitioner Family
DX: D35.02 Benign neoplasm of left adrenal gland (principal); N20.0 Calculus of kidney; R91.1 Solitary pulmonary nodule
CPT/HCPCS: 74170; Q9967

== ENCOUNTER → 2021-08-21 | Outpatient (CLI) | payer OTHER ==
[~2021-08-21] MED LIST changes: -ISOVUE-370 76% 100ML VIAL As Ordered ONE
--- NOTE | 2021-08-21 15:21 | REP ---
INDICATION: SCREEN MAMMO. COMPARISON: 06/12/2017 as well as other prior exams. TECHNIQUE: MLO and CC views bilateral breasts performed. Tomosynthesis performed. FINDINGS: Mild scattered fibroglandular tissue is present bilaterally. There is an oval 5 mm nodular density centrally and somewhat superiorly in the mid 3rd of the left breast only seen on the MLO view. It is not seen in the CC projection. No other mass is seen. No clustered microcalcifications are seen. Two metallic clips are again seen in the retroareolar region of the left breast. The Volpara volumetric breast density pattern is A. IMPRESSION: BIRADS/ACR category 0, incomplete. There is a 5 mm nodular density on the left MLO view, not seen in the CC projection. Recommend spot-compression view left breast in the MLO projection, as well as an mL tomographic sequence. Other views and ultrasound may also be necessary. This patient's Tyrer-Cuzick lifetime breast cancer risk assessment score is 11.5%. This mammogram was interpreted with the aid of an FDA-approved computer-aided detection system. The patient states she had a clinical breast exam in over 1 year ago. The patient letter being requested is M0. RECOMMENDATION: Recommend spot compression views left breast and possible ultrasound as discussed above. <Electronically signed by Jeff Van > 08/21/21 [id number]
--- NOTE | 2021-08-21 16:07 | DEXAMM ---
INDICATION: MENOPAUSAL AND POST MENOPAUSAL. COMPARISON: None. TECHNIQUE: Bone density was measured using dual-energy x-ray absorptiometry (DEXA). FINDINGS: AP SPINE L1-L4 BMD 1.355 g/cm2 Young Adult T-Score 1.3 Age Matched Z-Score 1.9. LT FEMUR, TOTAL BMD 1.007 g/cm2 Young Adult T-Score 0.0 Age Matched Z-Score 0.5. LT NECK BMD 0.941 g/cm2 Young Adult T-Score -0.7 Age Matched Z-Score 0.2. RT FEMUR, TOTAL BMD 1.019 g/cm2 Young Adult T-Score 0.1 Age Matched Z-Score 0.6. RT NECK BMD 1.017 g/cm2 Young Adult T-Score -0.2 Age Matched Z-Score 0.7. IMPRESSION: There is normal bone density of the spine. There is normal bone density of the left hip. There is normal bone density of the right hip. The 10 year probability of major osteoporotic fracture is 4.1%, hip fracture 0.1%. FOLLOW-UP: Recommendation for the next bone density exam: 5 years. <Electronically signed by Jeff Van > 08/21/21 [id number]
== END ==
LOC: M WHC 13:45
PROVIDERS: ATTEND Pediatrics
DX: R92.2 Inconclusive mammogram (principal); N95.9 Unspecified menopausal and perimenopausal disorder

== ENCOUNTER → 2021-08-29 | Outpatient (REF) | payer OTHER | LOC: M LAB REF 18:41 | PROVIDERS: ATTEND Physician Assistant Medical | DX: R50.9 Fever, unspecified (principal) ==

== ENCOUNTER → 2021-09-13 | Outpatient (CLI) | payer OTHER | LOC: M WHC 14:51 | PROVIDERS: ATTEND Pediatrics | DX: R92.2 Inconclusive mammogram (principal) | CPT/HCPCS: 77065; G0279 ==

== ENCOUNTER → 2021-10-27 | Outpatient (CLI) | payer OTHER | LOC: M LABSMTC 09:44 | PROVIDERS: ATTEND Anesthesiology | DX: Z01.812 Encounter for preprocedural laboratory examination (principal); Z20.822 Contact with and (suspected) exposure to COVID-19 ==

== ENCOUNTER 2021-11-05 12:06 | Emergency (ER) | payer OTHER ==
[~2021-11-05] VITALS: Ht 170.2 cm; Wt 102.6 kg
[2021-11-05] MEDS ORDERED: BENZONATATE 100MG CAPSULE PO ONE (13:25)
[2021-11-05] MEDS ORDERED: KETOROLAC 30 MG/ML 1ML VIAL IV ONE (13:25)
[2021-11-05 13:52] LABS: BASO % 0.8 % (0.0-1.0); EOS # 0.2 10^3/uL (0.0-0.5); EOS % 4.1 % (0.0-3.0); HEMATOCRIT 40.7 % (36.0-47.0); HEMOGLOBIN 13.7 g/dl (12.0-15.5); LYMPH # 1.4 10^3/uL (1.5-5.0); MEAN CORPUSCULAR HEMOGLOBIN 31.2 pg (27.0-33.0); MEAN CORPUSCULAR HGB CONC 33.7 g/dl (32.0-36.5); MEAN CORPUSCULAR VOLUME 92.7 fl (80.0-96.0); MONO # 0.4 10^3/uL (0.0-0.8); MONO % 8.3 % (2.0-8.0); NEUTROPHILS # 3.2 10^3/uL (1.5-8.5); NEUTROPHILS % 59.4 % (36.0-66.0); PLATELET COUNT, AUTOMATED 259 10^3/uL (150-450); RED BLOOD COUNT 4.39 10^6/uL (4.00-5.40); WHITE BLOOD COUNT 5.3 10^3/uL (4.0-10.0)
[2021-11-05] MEDS: ALBUTEROL 90 MCG/ACT 8GM HFA INHALER INH SCH ×3 (13:56→14:19)
[2021-11-05] MEDS: ACETAMINOPHEN 500 MG TAB PO ONE ×2 (14:13→14:14)
[2021-11-05 14:18] LABS: BLOOD UREA NITROGEN 19 MG/DL (7-18); CALCIUM LEVEL 8.7 MG/DL (8.5-10.1); CARBON DIOXIDE LEVEL 25 MEQ/L (21-32); CHLORIDE LEVEL 115 MEQ/L (98-107); CREATININE FOR GFR 0.72 MG/DL (0.55-1.30); GLOMERULAR FILTRATION RATE > 60.0 (>51); GLUCOSE, FASTING 93 MG/DL (70-100); SODIUM LEVEL 143 MEQ/L (136-145)
[2021-11-05 14:22] LABS: CK-MB VALUE MASS < 1.0 NG/ML (<3.6); CPK CREATINE PHOSPHOKINASE 65 U/L (26-192); MB/CK RELATIVE INDEX 1.54 (< OR =4)
[2021-11-05 14:48] LABS: ERYTHROCYTE SEDIMENTATION RATE 9 mm/hr (0-30)
[2021-11-05] MEDS ORDERED: methylPREDNISolone 125MG 2ML VIAL IV ONE (15:45)
[2021-11-05 16:35] LABS: CK-MB VALUE MASS < 1.0 NG/ML (<3.6); CPK CREATINE PHOSPHOKINASE 59 U/L (26-192); MB/CK RELATIVE INDEX 1.69 (< OR =4)
[2021-11-05] MEDS ORDERED: PROAAER10 INH (16:44)
[2021-11-05] MEDS ORDERED: PRED20TA PO (16:44)
[2021-11-05] MEDS ORDERED: BENZ200C70 PO (16:44)
[2021-11-05 17:07] VITALS: BP 164/100
== END 2021-11-05 17:25 | disposition home or self-care (01) ==
LOC: M ED 12:06
DX: R07.9 Chest pain, unspecified (principal); R06.02 Shortness of breath; U07.1 COVID-19; J30.2 Other seasonal allergic rhinitis
CPT/HCPCS: 71045; 80048; 82550; 82553; 84484; 85025; 85379; 85652; 86140; 93005; 94640; 96374; 96375; 99284; J1885; J2930

== ENCOUNTER → 2021-12-15 | Outpatient (CLI) | payer OTHER ==
[~2021-12-15] MED LIST changes: +BENZ200C70 PO; +PRED20TA PO; +PROAAER10 INH; +TOPI100T9 PO; +TRAZ-252 PO; +VITA200032 PO
== END ==
LOC: M LABSMTC 09:42
PROVIDERS: ATTEND Anesthesiology
DX: Z01.812 Encounter for preprocedural laboratory examination (principal); Z20.822 Contact with and (suspected) exposure to COVID-19

== ENCOUNTER 2021-12-20 11:37 | Day surgery (SDC) | payer OTHER ==
[~2021-12-20] VITALS: Ht 167.6 cm; Wt 101.1 kg
[~2021-12-20 11:37] MED LIST changes: +NS 1,000 ML IV ONE
[2021-12-20] MEDS ORDERED: LIDOCAINE 2% 100MG/5ML SDV (FOR ANES.) As Ordered ONE (13:42)
[2021-12-20] MEDS ORDERED: propofoL 200 MG/20 ML VIAL As Ordered ONE (13:42)
[2021-12-20 14:20] VITALS: BP 172/88
== END 2021-12-20 14:30 | disposition home or self-care (01) ==
LOC: M OPP 11:37
PROVIDERS: ATTEND Surgery
DX: Z12.11 Encounter for screening for malignant neoplasm of colon (principal); M35.00 Sjogren syndrome, unspecified; Z98.84 Bariatric surgery status; Z79.899 Other long term (current) drug therapy

== ENCOUNTER → 2023-03-24 | Outpatient (REF) | payer OTHER ==
[~2023-03-24] MED LIST changes: -MAXA10TA14 PO; -NS 1,000 ML IV ONE; +RIZA10TA64 PO; -ROPI1TAB3 PO; +ROPI1TAB73 PO; -ROPI2TAB3 PO; +ROPI2TAB46 PO
[2023-03-24 17:09] LABS: BASO % 0.7 % (0.0-1.0); EOS # 0.3 10^3/uL (0.0-0.5); EOS % 4.9 % (0.0-3.0); HEMATOCRIT 43.5 % (36.0-47.0); HEMOGLOBIN 14.2 g/dl (12.0-15.5); LYMPH # 1.3 10^3/uL (1.5-5.0); LYMPH % 23.6 % (24.0-44.0); MEAN CORPUSCULAR HEMOGLOBIN 32.5 pg (27.0-33.0); MEAN CORPUSCULAR HGB CONC 32.6 g/dl (32.0-36.5); MEAN CORPUSCULAR VOLUME 99.5 fl (80.0-96.0); MONO # 0.5 10^3/uL (0.0-0.8); MONO % 8.7 % (2.0-8.0); NEUTROPHILS # 3.4 10^3/uL (1.5-8.5); NEUTROPHILS % 61.9 % (36.0-66.0); PLATELET COUNT, AUTOMATED 253 10^3/uL (150-450); RED BLOOD COUNT 4.37 10^6/uL (4.00-5.40); WHITE BLOOD COUNT 5.5 10^3/uL (4.0-10.0)
[2023-03-24 17:22] LABS: HEMOGLOBIN A1c 4.4 % (4.0-6.0)
[2023-03-24 17:27] LABS: ALBUMIN 3.8 G/DL (3.2-5.2); ALKALINE PHOSPHATASE 109 U/L (46-116); ALT/SGPT 19 U/L (7.0-40); AST/SGOT 19 U/L (<34); BILIRUBIN,TOTAL 0.4 MG/DL (0.3-1.2); BLOOD UREA NITROGEN 25 MG/DL (9-23); CALCIUM LEVEL 8.8 MG/DL (8.5-10.1); CARBON DIOXIDE LEVEL 28 MMOL/L (20-31); CHLORIDE LEVEL 109 MMOL/L (98-107); CREATININE FOR GFR 0.83 MG/DL (0.55-1.30); GLOMERULAR FILTRATION RATE > 60.0 (>51); GLUCOSE, FASTING 80 MG/DL (60-100); POTASSIUM SERUM 4.2 MMOL/L (3.5-5.1); SODIUM LEVEL 143 MMOL/L (136-145); TOTAL PROTEIN 6.7 G/DL (5.7-8.2)
[2023-03-24 17:29] LABS: THYROID STIMULATING HORMONE 2.275 uIU/ML (0.55-4.78)
== END ==
LOC: M LAB REF 16:29
PROVIDERS: ATTEND Pediatrics
DX: I10 Essential (primary) hypertension (principal); E66.9 Obesity, unspecified; F41.9 Anxiety disorder, unspecified

== ENCOUNTER → 2023-04-01 | Outpatient (REF) | payer OTHER ==
[2023-04-01 17:37] LABS: FERRITIN 20.1 NG/ML (7.3-270.7); FOLATE 12.7 NG/ML (>5.4)
== END ==
LOC: M LAB REF 16:40
PROVIDERS: ATTEND Pediatrics
DX: Z98.84 Bariatric surgery status (principal); R63.5 Abnormal weight gain

== ENCOUNTER 2023-05-05 14:11 | Emergency (ER) | payer OTHER ==
[~2023-05-05] VITALS: Ht 170.2 cm; Wt 104.5 kg
[2023-05-05] MEDS ORDERED: LOSA50TA28 PO (14:36)
[2023-05-05] MEDS ORDERED: ISOVUE-370 76% 100ML VIAL As Ordered ONE (14:38)
[2023-05-05 15:05] LABS: BASO # 0.1 10^3/uL (0.0-0.2); BASO % 0.7 % (0.0-1.0); EOS # 0.2 10^3/uL (0.0-0.5); EOS % 3.3 % (0.0-3.0); HEMATOCRIT 45.1 % (36.0-47.0); HEMOGLOBIN 14.9 g/dl (12.0-15.5); LYMPH # 1.9 10^3/uL (1.5-5.0); MEAN CORPUSCULAR HEMOGLOBIN 32.7 pg (27.0-33.0); MEAN CORPUSCULAR VOLUME 98.9 fl (80.0-96.0); MONO # 0.5 10^3/uL (0.0-0.8); MONO % 8.1 % (2.0-8.0); NEUTROPHILS # 3.9 10^3/uL (1.5-8.5); NEUTROPHILS % 58.6 % (36.0-66.0); PLATELET COUNT, AUTOMATED 248 10^3/uL (150-450); RED BLOOD COUNT 4.56 10^6/uL (4.00-5.40); WHITE BLOOD COUNT 6.7 10^3/uL (4.0-10.0)
[2023-05-05 15:09] LABS: INR 1.01
[2023-05-05 15:10] LABS: PARTIAL THROMBOPLASTIN TIME 22.4 SECONDS (24.8-34.2)
[2023-05-05] MEDS: METOCLOPRAMIDE INJ 10MG/2ML VIAL IV ONE (15:12)
[2023-05-05] MEDS: diphenhydrAMINE 50MG/ML VIAL IV STA (15:12)
[2023-05-05 15:17] LABS: CK-MB VALUE MASS < 1.0 NG/ML (<3.6)
[2023-05-05 15:18] LABS: CPK CREATINE PHOSPHOKINASE 100 U/L (34-145)
[2023-05-05] MEDS: KETOROLAC 30 MG/ML 1ML VIAL IV ONE (15:50)
[2023-05-05 15:51] VITALS: BP 182/87
[2023-05-05] MEDS: LOSARTAN 50MG TABLET PO ONE (15:51)
[2023-05-05 17:05] VITALS: BP 165/97; TEMP 97.7; O2SAT 99
== END 2023-05-05 17:22 | disposition home or self-care (01) ==
LOC: M ED 14:11
DX: G43.909 Migraine, unspecified, not intractable, without status migrainosus (principal); I10 Essential (primary) hypertension; J45.909 Unspecified asthma, uncomplicated; Z98.84 Bariatric surgery status; Z79.899 Other long term (current) drug therapy
CPT/HCPCS: 70450; 70496; 70498; 71045; 80047; 82550; 82553; 84484; 85025; 85610; 85730; 93005; 93041; 94760; 96374; 96375; 99284; J1200; J1885; J2765; Q9967

== ENCOUNTER → 2023-06-26 | Outpatient (CLI) | payer OTHER ==
[~2023-06-26] MED LIST changes: +LOSA50TA28 PO
== END ==
LOC: M WHC 14:49
PROVIDERS: ATTEND Pediatrics
DX: Z12.31 Encounter for screening mammogram for malignant neoplasm of breast (principal)

== ENCOUNTER 2024-03-13 11:17 | Emergency (ER) | payer OTHER ==
[~2024-03-13] VITALS: Ht 170.2 cm; Wt 108.2 kg
[~2024-03-13 11:17] MED LIST changes: +ROPI1TA PO; -ROPI1TAB86 PO
[2024-03-13] MEDS: METOCLOPRAMIDE INJ 10MG/2ML VIAL IV ONE (12:26)
[2024-03-13 12:27] VITALS: BP 177/98
[2024-03-13] MEDS: LOSARTAN 50MG TABLET PO ONE (12:27)
[2024-03-13] MEDS: KETOROLAC 30 MG/ML 1ML VIAL IV ONE (12:27)
[2024-03-13] MEDS: FUROSEMIDE 40MG/4ML VIAL IV ONE (12:32)
[2024-03-13] MEDS ORDERED: LOSA50TA28 PO (13:58)
[2024-03-13 14:46] VITALS: BP 181/96; O2SAT 98
[2024-03-13 14:56] VITALS: TEMP 98
== END 2024-03-13 14:56 | disposition home or self-care (01) ==
LOC: M ED 11:17
DX: I10 Essential (primary) hypertension (principal); G43.909 Migraine, unspecified, not intractable, without status migrainosus; F41.0 Panic disorder [episodic paroxysmal anxiety]; J30.2 Other seasonal allergic rhinitis; Z79.899 Other long term (current) drug therapy
CPT/HCPCS: 96374; 96375; 99284; J1885; J1940; J2765

== ENCOUNTER → 2024-04-02 | Outpatient (REF) | payer OTHER ==
[2024-04-02 17:36] LABS: BASO # 0.1 10^3/uL (0.0-0.2); BASO % 1.2 % (0.0-1.0); EOS # 0.4 10^3/uL (0.0-0.5); EOS % 10.5 % (0.0-3.0); HEMATOCRIT 44.3 % (36.0-47.0); HEMOGLOBIN 14.5 g/dl (12.0-15.5); LYMPH # 1.2 10^3/uL (1.5-5.0); LYMPH % 28.7 % (24.0-44.0); MEAN CORPUSCULAR HEMOGLOBIN 33.4 pg (27.0-33.0); MEAN CORPUSCULAR HGB CONC 32.7 g/dl (32.0-36.5); MEAN CORPUSCULAR VOLUME 102.1 fl (80.0-96.0); MONO # 0.4 10^3/uL (0.0-0.8); MONO % 8.5 % (2.0-8.0); NEUTROPHILS # 2.1 10^3/uL (1.5-8.5); NEUTROPHILS % 50.6 % (36.0-66.0); PLATELET COUNT, AUTOMATED 264 10^3/uL (150-450); RED BLOOD COUNT 4.34 10^6/uL (4.00-5.40); WHITE BLOOD COUNT 4.1 10^3/uL (4.0-10.0)
[2024-04-02 17:49] LABS: HEMOGLOBIN A1c 4.7 % (4.0-6.0)
[2024-04-02 18:10] LABS: BLOOD UREA NITROGEN 19 MG/DL (9-23); CALCIUM LEVEL 9.2 MG/DL (8.5-10.1); CARBON DIOXIDE LEVEL 24 MMOL/L (20-31); CHLORIDE LEVEL 113 MMOL/L (98-107); CHOLESTEROL LEVEL 215 MG/DL (<200); CHOLESTEROL RISK RATIO 2.83 (<5); CREATININE FOR GFR 0.76 MG/DL (0.55-1.30); GLOMERULAR FILTRATION RATE > 60.0 (>51); GLUCOSE, FASTING 86 MG/DL (60-100); HDL CHOLESTEROL 75.9 MG/DL (>40); IRON (FE) 120 UG/DL (50-170); LDL CHOLESTEROL 85.1 MG/DL (<100); NON-HDL-C 139.1 MG/DL; PERCENT SATURATION 34.8 % (13.2-45.0); POTASSIUM SERUM 4.3 MMOL/L (3.5-5.1); SODIUM LEVEL 146 MMOL/L (136-145); TOTAL IRON BINDING CAPACITY 345 UG/DL (250-425); TRIGLYCERIDES LEVEL 270 MG/DL (<150)
[2024-04-02 18:12] LABS: VITAMIN B12 LEVEL 377 PG/ML (211-911)
[2024-04-02 18:13] LABS: FERRITIN 49.5 NG/ML (7.3-270.7); FOLATE 9.3 NG/ML (>5.4); TOTAL 25(OH) VITAMIN D 30.3 NG/ML (20.0-100.0)
== END ==
LOC: M LAB REF 16:25
PROVIDERS: ATTEND Pediatrics
DX: I10 Essential (primary) hypertension (principal); K91.2 Postsurgical malabsorption, not elsewhere classified; E66.9 Obesity, unspecified